=== PATIENT | female | born 1990 | race Caucasian/White ===

== ENCOUNTER → 2019-07-30 | Outpatient (CLI) | payer OTHER ==
[~2019-07-30] MED LIST: ALBUTEROL (0.083%) 2.5MG/3ML NEB ONE
== END | disposition home or self-care (01) ==
LOC: PF 12:01
PROVIDERS: ATTEND Internal Medicine Rheumatology
DX: Z11.59 Encounter for screening for other viral diseases (principal)
CPT/HCPCS: 94060; 94727; 94729; Z7610

== ENCOUNTER → 2020-01-18 | Outpatient (CLI) | payer MEDICAID, OTHER ==
[~2020-01-18] MED LIST changes: -ALBUTEROL (0.083%) 2.5MG/3ML NEB ONE; +ALBUTEROL (0.5%) 2.5MG/0.5ML NEB HHN ONE
== END | disposition home or self-care (01) ==
LOC: CCL 11:34
PROVIDERS: ATTEND Internal Medicine Rheumatology
DX: Z00.8 Encounter for other general examination (principal)
CPT/HCPCS: 94060; 94727; 94729; Z7610